=== PATIENT | female | born 1980 | race Caucasian/White ===

== ENCOUNTER 2016-06-14 15:09 | Emergency (ER) | payer BC ==
[~2016-06-14] VITALS: Wt 86.2 kg
[~2016-06-14 15:09] MED LIST: ANAPROX DS550 MG PO; ATIVAN0.5 MG PO; BRIN20TA PO; DARVOCET N 1001 TAB PO; FLEXERIL10 MG PO; IBU800 MG PO; MACROBID100 M1 PO; MIRALAX POWDER255 GM PO; MULTIPLE VITAMI1 CAP PO; NAPROSYN500 MG PO; NORCO 5-325 TA1 EACH PO; PEPCID40 MG PO; PERCOCET 325 MG1 TA2 PO; PYRIDIUM200 M1 PO; TRAZODONE50 MG PO; ULTRAM50 MG PO; VICODIN 5/500 505 MG PO; ZOFRAN4 MG PO; Zofran4 MG PO
[2016-06-14] MEDS ORDERED: ROBITUSSIN AC 110 ML PO (16:45)
[2016-06-14] MEDS ORDERED: PROAIR HFA8.5 GM INH (16:47)
== END 2016-06-14 16:46 | disposition home or self-care (01) ==
LOC: ED 15:09
DX: J40 Bronchitis, not specified as acute or chronic (principal); Z98.51 Tubal ligation status; Z79.899 Other long term (current) drug therapy

== ENCOUNTER 2016-11-14 17:44 | Emergency (ER) | payer BC ==
[~2016-11-14] VITALS: Wt 90.7 kg
[~2016-11-14 17:44] MED LIST changes: +PROAIR HFA8.5 GM INH; +ROBITUSSIN AC 110 ML PO
[2016-11-14 18:25] LABS: BASO % 0.5 % (0.0-1.0); EOS # 0.2 10*3/uL (0.0-0.4); EOS % 2.6 % (1.0-4.0); HEMATOCRIT 41.7 % (37.0-47.0); HEMOGLOBIN 13.8 g/dl (12.0-16.0); LYMPH # 2.6 10*3/uL (1.3-4.4); LYMPH % 29.5 % (27.0-41.0); MEAN CELL VOLUME 89.9 fl (81.0-99.0); MEAN CORPUSCULAR HGB 29.7 pg (27.0-31.0); MEAN CORPUSCULAR HGB CONC 33.1 g/dl (33.0-37.0); MEAN PLATELET VOLUME 10.1 fl (9.6-12.3); MONO # 0.6 10*3/uL (0.1-1.0); MONO % 6.3 % (3.0-9.0); NEUT # 5.4 10*3/uL (2.3-7.9); NEUT % 60.9 % (47.0-73.0); PLATELET COUNT AUTOMATED 309 10*3/uL (130-400); RED BLOOD COUNT 4.64 10*6/uL (4.10-5.10); RED CELL DISTRI WIDTH 12.6 % (0-14.5); WHITE BLOOD COUNT 8.9 10*3/uL (4.8-10.8)
[2016-11-14 18:39] LABS: ALBUMIN 3.5 gm/dl (3.1-4.5); ALKALINE PHOSPHATASE 90 U/L (45-117); BUN 15 mg/dl (7-24); CHLORIDE 105 mmol/L (98-107); CREATININE 1.04 mg/dL (0.55-1.02); POTASSIUM 3.7 mmol/L (3.5-5.1); SGOT/AST 17 IU/L (3-35); SGPT/ALT 28 U/L (12-78); SODIUM 139 mmol/L (136-145); TOTAL PROTEIN 7.6 gm/dL (6.4-8.2)
[2016-11-14 19:10] LABS: BILIRUBIN NEGATIVE (NEGATIVE); BLOOD NEGATIVE (NEGATIVE); CLARITY CLEAR (CLEAR); COLOR YELLOW (YELLOW); GLUCOSE NEGATIVE (NEGATIVE); KETONE NEGATIVE (NEGATIVE); LEUKO ESTERASE NEGATIVE (NEGATIVE); NITRITE NEGATIVE (NEGATIVE); SPECIFIC GRAVITY <= 1.005 (1.005-1.030); UROBILINOGEN 0.2 E.U./dl (0.2-1.0)
[2016-11-14 19:16] LABS: BACTERIA TRACE; EPITHELIAL CELLS 0-2
[2016-11-14] MEDS ORDERED: FLOMAX0.4 MG PO (20:13)
[2016-11-14] MEDS ORDERED: Percocet 325 MG1 TAB PO (20:13)
[2016-11-14] MEDS ORDERED: ZOFRAN ODT4 MG SL (20:13)
== END 2016-11-14 21:07 | disposition home or self-care (01) ==
LOC: ED 17:44
PROVIDERS: Physician Assistant
DX: N23 Unspecified renal colic (principal); R33.9 Retention of urine, unspecified; Z79.899 Other long term (current) drug therapy

== ENCOUNTER 2017-11-08 23:48 | Emergency (ER) | payer BC ==
[~2017-11-08] VITALS: Ht 165.1 cm; Wt 88.5 kg
[~2017-11-08 23:48] MED LIST changes: +FLOMAX0.4 MG PO; +Percocet 325 MG1 TAB PO; +ZOFRAN ODT4 MG SL
== END 2017-11-09 01:32 | disposition home or self-care (01) ==
LOC: ED 23:48
DX: S83.8X1A Sprain of other specified parts of right knee, initial encounter (principal); Z79.899 Other long term (current) drug therapy; V49.9XXA Car occupant (driver) (passenger) injured in unspecified traffic accident, initial encounter; Y93.89 Activity, other specified; Y92.89 Other specified places as the place of occurrence of the external cause; Y99.8 Other external cause status

== ENCOUNTER 2018-01-29 15:54 | Emergency (ER) | payer BC ==
[~2018-01-29] VITALS: Ht 165.1 cm; Wt 83.9 kg
[2018-01-29] MEDS ORDERED: AUGMENTIN 875875 MG PO (16:09)
== END 2018-01-29 16:34 | disposition home or self-care (01) ==
LOC: ED 15:54
DX: S61.411A Laceration without foreign body of right hand, initial encounter (principal); Z79.899 Other long term (current) drug therapy; W54.0XXA Bitten by dog, initial encounter; Y93.89 Activity, other specified; Y92.89 Other specified places as the place of occurrence of the external cause; Y99.8 Other external cause status

== ENCOUNTER 2018-02-22 22:45 | Emergency (ER) | payer BC ==
[~2018-02-22] VITALS: Ht 165.1 cm; Wt 83.9 kg
[~2018-02-22 22:45] MED LIST changes: +AUGMENTIN 875875 MG PO
[2018-02-22] MEDS ORDERED: LAMOTRIGINE100 MG PO (22:50)
[2018-02-22] MEDS ORDERED: GABAPENTIN100 M2 PO (22:51)
[2018-02-22] MEDS ORDERED: SUMATRIPTAN SUC50 M1 PO (22:51)
[2018-02-22] MEDS ORDERED: QUETIAPINE FUM200 M3 PO (22:52)
[2018-02-23] MEDS ORDERED: CEPHALEXIN500 M1 PO (00:19)
[2018-02-23] MEDS ORDERED: ANTIBIOTIC28.4 GM T (00:19)
== END 2018-02-23 01:59 | disposition home or self-care (01) ==
LOC: ED 22:45
DX: S61.031A Puncture wound without foreign body of right thumb without damage to nail, initial encounter (principal); S60.011A Contusion of right thumb without damage to nail, initial encounter; Z98.890 Other specified postprocedural states; Z79.899 Other long term (current) drug therapy; W22.03XA Walked into furniture, initial encounter; Y93.89 Activity, other specified; Y92.89 Other specified places as the place of occurrence of the external cause; Y99.9 Unspecified external cause status

== ENCOUNTER 2018-11-15 20:20 | Emergency (ER) | payer OTHER ==
[~2018-11-15] VITALS: Ht 165.1 cm; Wt 90.7 kg
[~2018-11-15 20:20] MED LIST changes: +AMOXICILLIN500 M3 PO; +ANTIBIOTIC28.4 GM T; +CEPHALEXIN500 M1 PO; +GABAPENTIN100 M2 PO; +LAMOTRIGINE100 MG PO; +NEURONTIN300 MG PO; +QUETIAPINE FUM200 M3 PO; +SUMATRIPTAN SUC50 M1 PO
[2018-11-15] MEDS ORDERED: KENALOG 0.1%80 GM T (23:58)
[2018-11-16 00:42] LABS: BASO % 0.1 % (0.0-1.0); HEMATOCRIT 40.7 % (37.0-47.0); HEMOGLOBIN 13.4 g/dl (12.0-16.0); LYMPH # 1.2 10*3/uL (1.3-4.4); LYMPH % 17.4 % (27.0-41.0); MEAN CELL VOLUME 93.8 fl (81.0-99.0); MEAN CORPUSCULAR HGB 30.9 pg (27.0-31.0); MEAN CORPUSCULAR HGB CONC 32.9 g/dl (33.0-37.0); MONO # 0.2 10*3/uL (0.1-1.0); MONO % 2.2 % (3.0-9.0); NEUT # 5.5 10*3/uL (2.3-7.9); NEUT % 79.6 % (47.0-73.0); PLATELET COUNT AUTOMATED 267 10*3/uL (130-400); RED BLOOD COUNT 4.34 10*6/uL (4.10-5.10); RED CELL DISTRI WIDTH 12.8 % (0-14.5)
[2018-11-16 00:49] LABS: BUN 12 mg/dl (7-24); CHLORIDE 110 mmol/L (98-107); CREATININE 0.64 mg/dL (0.55-1.02); POTASSIUM 3.7 mmol/L (3.5-5.1); SODIUM 141 mmol/L (136-145)
[2018-11-16 00:54] LABS: BILIRUBIN NEGATIVE (NEGATIVE); BLOOD NEGATIVE (NEGATIVE); CLARITY CLEAR (CLEAR); COLOR YELLOW (YELLOW); GLUCOSE NEGATIVE (NEGATIVE); KETONE NEGATIVE (NEGATIVE); LEUKO ESTERASE NEGATIVE (NEGATIVE); NITRITE NEGATIVE (NEGATIVE); PH 6.5 (5.0-9.0); SPECIFIC GRAVITY 1.015 (1.005-1.030); UROBILINOGEN 0.2 E.U./dl (0.2-1.0)
[2018-11-16 01:03] LABS: BACTERIA 1+; EPITHELIAL CELLS 21-30; RBC 0-2 rbc/hpf (0-2)
[2018-11-16 01:06] LABS: URINE AMPHETAMINES < 1000 (1000ng/ml); URINE BARBITURATES < 200 (200ng/ml); URINE BENZODIAZEPINES < 200 (200ng/ml); URINE CANNABINOIDS (THC) < 50 (50ng/ml); URINE COCAINE < 300 (300ng/ml)
[2018-11-16 01:07] LABS: URINE METHADONE < 300 (300ng/ml); URINE OPIATES < 300 (300ng/ml)
[2018-11-16 01:13] LABS: URINE PHENCYCLIDINE < 25 (25ng/ml)
== END 2018-11-16 01:46 | disposition home or self-care (01) ==
LOC: ED 20:20
PROVIDERS: Nurse Practitioner Family
DX: L53.8 Other specified erythematous conditions (principal); T78.40XA Allergy, unspecified, initial encounter; B27.90 Infectious mononucleosis, unspecified without complication; Z79.899 Other long term (current) drug therapy; Y92.89 Other specified places as the place of occurrence of the external cause

== ENCOUNTER 2019-05-26 18:46 | Emergency (ER) | payer OTHER ==
[~2019-05-26] VITALS: Ht 165.1 cm; Wt 95.3 kg
[~2019-05-26 18:46] MED LIST changes: +KENALOG 0.1%80 GM T
[2019-05-26] MEDS ORDERED: ANAPROX DS550 MG PO (20:03)
== END 2019-05-26 20:24 | disposition home or self-care (01) ==
LOC: ED 18:46
DX: S93.402A Sprain of unspecified ligament of left ankle, initial encounter (principal); G43.909 Migraine, unspecified, not intractable, without status migrainosus; F41.9 Anxiety disorder, unspecified; Z79.899 Other long term (current) drug therapy; X50.1XXA Overexertion from prolonged static or awkward postures, initial encounter; Y93.89 Activity, other specified; Y92.89 Other specified places as the place of occurrence of the external cause; Y99.8 Other external cause status

== ENCOUNTER 2023-08-27 17:21 | Emergency (ER) | payer OTHER ==
[~2023-08-27] VITALS: Ht 165.1 cm; Wt 104.3 kg
[2023-08-27] MEDS ORDERED: Ketorolac Tromethamine 60 MG/2 ML VIAL IM ONE (20:00)
[2023-08-27] MEDS ORDERED: METHOCARBAMOL 500 MG TAB PO ONE (20:00)
[2023-08-27] MEDS ORDERED: METHOCARBAMOL750 M1 PO (20:06)
[2023-08-27] MEDS ORDERED: NAPROXEN250 MG PO (20:06)
== END 2023-08-27 20:09 | disposition home or self-care (01) ==
LOC: ED 17:21
DX: S29.011A Strain of muscle and tendon of front wall of thorax, initial encounter (principal); G43.909 Migraine, unspecified, not intractable, without status migrainosus; F41.9 Anxiety disorder, unspecified; F31.9 Bipolar disorder, unspecified; Z98.890 Other specified postprocedural states; Z90.49 Acquired absence of other specified parts of digestive tract; Z98.51 Tubal ligation status; X58.XXXA Exposure to other specified factors, initial encounter; Y93.89 Activity, other specified; Y92.009 Unspecified place in unspecified non-institutional (private) residence as the place of occurrence of the external cause; Y99.8 Other external cause status

== ENCOUNTER 2024-03-24 18:13 | Emergency (ER) | payer SELFPAY ==
[~2024-03-24] VITALS: Ht 165.1 cm; Wt 104.3 kg
[~2024-03-24 18:13] MED LIST changes: +METHOCARBAMOL750 M1 PO; +NAPROXEN250 MG PO
[2024-03-24] MEDS ORDERED: Pantoprazole Sodium 40 MG VIAL IV ONE (18:50)
[2024-03-24] MEDS ORDERED: SODIUM CHLORIDE 0.9% 1,000 ML IV ONE (18:50)
[2024-03-24] MEDS ORDERED: Ondansetron Hydrochloride 4 MG/2 ML VIAL IV ONE (18:50)
[2024-03-24 19:00] LABS: BASO # 0.1 10*3/uL (0.0-0.1); BASO % 0.7 % (0.0-1.0); EOS % 0.3 % (1.0-4.0); HEMATOCRIT 42.7 % (37.0-47.0); MEAN CELL VOLUME 92.8 fl (81.0-99.0); MEAN CORPUSCULAR HGB 30.4 pg (27.0-31.0); MEAN CORPUSCULAR HGB CONC 32.8 g/dl (33.0-37.0); MEAN PLATELET VOLUME 9.5 fl (9.6-12.3); MONO # 0.6 10*3/uL (0.1-1.0); MONO % 8.3 % (3.0-9.0); NEUT # 4.3 10*3/uL (2.3-7.9); NEUT % 56.6 % (47.0-73.0); PLATELET COUNT AUTOMATED 227 10*3/uL (130-400); RED CELL DISTRI WIDTH 12.7 % (0-14.5); WHITE BLOOD COUNT 7.6 10*3/uL (4.8-10.8)
[2024-03-24 19:14] LABS: BILIRUBIN Negative (Negative); BLOOD Negative (Negative); CLARITY Cloudy (Clear); COLOR Yellow (Yellow); GLUCOSE Negative (Negative); KETONE Trace (Negative); LEUKO ESTERASE Negative (Negative); NITRITE Negative (Negative); PH 6.5 (4.5-8.0); SPECIFIC GRAVITY 1.025 (1.001-1.030); UROBILINOGEN 0.2 E.U./dl (0.0-1.0)
[2024-03-24 19:21] LABS: BACTERIA 3+
[2024-03-24 19:22] LABS: ALKALINE PHOSPHATASE 53 U/L (46-116); BUN 17 mg/dl (9-23); CHLORIDE 104 mmol/L (98-107); LIPASE 34 U/L (12-53); POTASSIUM 3.6 mmol/L (3.4-5.1); SGPT/ALT 16 U/L (5-49); TOTAL PROTEIN 6.5 gm/dL (6.0-8.0)
[2024-03-24] MEDS ORDERED: MG-AL HYDROXIDE/SIMETICONE 30 ML UDC PO STA (21:12)
[2024-03-24] MEDS ORDERED: Lidocaine Hydrochloride 15 ML UDC PO STA (21:12)
[2024-03-24] MEDS ORDERED: Dicyclomine Hydrochloride 20 MG/10 ML OSYR PO STA (21:12)
[2024-03-24] MEDS ORDERED: ESOMEPRAZOLE MA20 MG PO (22:12)
[2024-03-24] MEDS ORDERED: PEPCID20 MG PO (22:12)
== END 2024-03-24 22:18 | disposition home or self-care (01) ==
LOC: ED 18:13
PROVIDERS: Nurse Practitioner Family
DX: K21.9 Gastro-esophageal reflux disease without esophagitis (principal); R10.13 Epigastric pain; F31.9 Bipolar disorder, unspecified; G43.909 Migraine, unspecified, not intractable, without status migrainosus; F41.9 Anxiety disorder, unspecified; Z90.49 Acquired absence of other specified parts of digestive tract; Z90.711 Acquired absence of uterus with remaining cervical stump; Z79.2 Long term (current) use of antibiotics; Z79.899 Other long term (current) drug therapy; Z90.710 Acquired absence of both cervix and uterus

== ENCOUNTER 2024-10-14 20:38 | Emergency (ER) | payer OTHER ==
[~2024-10-14] VITALS: Ht 165.1 cm; Wt 108.9 kg
[~2024-10-14 20:38] MED LIST changes: +ESOMEPRAZOLE MA20 MG PO; +PEPCID20 MG PO
[2024-10-14] MEDS ORDERED: NAPROSYN500 MG PO (21:23)
== END 2024-10-14 21:46 | disposition home or self-care (01) ==
LOC: ED 20:38
DX: S93.402A Sprain of unspecified ligament of left ankle, initial encounter (principal); Z90.710 Acquired absence of both cervix and uterus; Z79.899 Other long term (current) drug therapy; X50.1XXA Overexertion from prolonged static or awkward postures, initial encounter; Y93.89 Activity, other specified; Y92.89 Other specified places as the place of occurrence of the external cause; Y99.8 Other external cause status